=== PATIENT | male | born 1975 | race African-American/Black ===

== ENCOUNTER → 2019-01-13 | Outpatient (REF) | payer OTHER ==
[~2019-01-13] MED LIST: FLEXERIL PO; FOLI1TAB PO; GLUC500T3 PO; GREEN COFFEE BEAN PO; TRAM50TA2 PO; VICO5TAB PO; [UNRECOGNIZED DRUG - OTHER] IM
== END ==
LOC: M SFHCLERA 10:09
PROVIDERS: ATTEND Nurse Practitioner Family
DX: R68.89 Other general symptoms and signs (principal)

== ENCOUNTER → 2020-10-29 | Outpatient (CLI) | payer OTHER | LOC: M LABSMTC 15:10 | PROVIDERS: ATTEND Pediatrics | DX: Z11.59 Encounter for screening for other viral diseases (principal) ==